=== PATIENT | male | born 1955 | race Caucasian/White ===

== ENCOUNTER 2017-08-28 00:17 | Emergency (ER) | payer OTHER ==
[~2017-08-28] VITALS: Ht 180.3 cm; Wt 104.3 kg
[~2017-08-28 00:17] MED LIST: ANTIOXIDANT PO; ANTIVERT25 MG PO; B12,B-12,B 12500 MC1 PO; BENTYL PO; BETAPACE80 MG PO; CARDIZEM CD240 MG PO; CARDIZEM CD360 MG PO; COLESTIPOL HYDRO1 GM PO; COUMADIN5 M2 PO; COZAAR100 MG PO; DIGOXIN0.125 MG PO; DIOVAN160 M2 PO; ECOTRIN81 MG PO; FLOMAX0.4 MG PO; FLONASE ALLERG9.9 ML NS; K2 PLUS D3 TAB1 EACH PO; LISINOPRIL10 M1 PO; LOVAZA1 GM PO; LOVENOX EASYINJ1 DEV SC; MAGNESIUM400 M1 PO; NEXIUM20 M1 PO; NEXIUM20 MG/PACK PO; NORVASC5 MG PO; PERCOCET 325 MG1 TA5 PO; POTASSIUM CITR15 ME1 PO; POTASSIUM CITR500 GM MC; POTASSIUM OTC; PRAD75 PO; PRADAXA150 MG PO; PREDNISONE20 M1 PO; PROBIOTIC FORMU1 CAP PO; PROTONIX TR40 M1 PO; TAZTIA XT240 MG PO; TIKOSYN0.5 MG PO; ZANTAC 150150 MG PO; ZINC50 M1 PO
[2017-08-28 01:10] LABS: BASO # 0.1 10*3/uL (0.0-0.1); BASO % 0.8 % (0.0-1.0); EOS # 0.1 10*3/uL (0.0-0.4); EOS % 1.5 % (1.0-4.0); HEMOGLOBIN 12.6 g/dl (14.0-18.0); LYMPH # 3.1 10*3/uL (1.3-4.4); LYMPH % 35.8 % (27.0-41.0); MEAN CELL VOLUME 77.7 fl (80.0-94.0); MEAN CORPUSCULAR HGB 25.1 pg (27.0-31.0); MEAN CORPUSCULAR HGB CONC 32.3 g/dl (33.0-37.0); MEAN PLATELET VOLUME 9.5 fl (9.6-12.3); MONO % 11.3 % (3.0-9.0); NEUT # 4.4 10*3/uL (2.3-7.9); NEUT % 50.3 % (47.0-73.0); PLATELET COUNT AUTOMATED 294 10*3/uL (130-400); RED BLOOD COUNT 5.02 10*6/uL (4.50-5.90); RED CELL DISTRI WIDTH 15.9 % (0-14.5); WHITE BLOOD COUNT 8.8 10*3/uL (4.8-10.8)
[2017-08-28 01:30] LABS: BUN 18 mg/dl (7-24); CHLORIDE 106 mmol/L (98-107); CREATININE 1.36 mg/dL (0.70-1.30); POTASSIUM 3.7 mmol/L (3.5-5.1); SODIUM 142 mmol/L (136-145)
[2017-08-28 01:31] LABS: TROPONIN I < 0.015 ng/ml (<0.045)
[2017-08-28 03:24] VITALS: BP 145/80
== END 2017-08-28 04:24 | disposition home or self-care (01) ==
LOC: ED 00:17
PROVIDERS: Emergency Medicine Emergency Medical Services
DX: T46.2X1A Poisoning by other antidysrhythmic drugs, accidental (unintentional), initial encounter (principal); T46.5X1A Poisoning by other antihypertensive drugs, accidental (unintentional), initial encounter; I48.91 Unspecified atrial fibrillation; K21.9 Gastro-esophageal reflux disease without esophagitis; I10 Essential (primary) hypertension; E11.9 Type 2 diabetes mellitus without complications; Z90.49 Acquired absence of other specified parts of digestive tract; Z88.1 Allergy status to other antibiotic agents; Y92.89 Other specified places as the place of occurrence of the external cause

== ENCOUNTER → 2021-04-05 | Outpatient (CLI) | payer MEDICARE | END | disposition home or self-care (01) | LOC: COVID19 15:50 | PROVIDERS: ATTEND Podiatrist Foot & Ankle Surgery | DX: Z11.52 Encounter for screening for COVID-19 (principal) ==